=== PATIENT | male | born 1980 ===

== ENCOUNTER 2022-10-04 17:48 | Emergency (ER) | payer OTHER, SELFPAY ==
[2022-10-04 18:38] VITALS: BP 108/70; PULSE 96; RESP 16; TEMP 36.8; O2SAT 99; BMI 19.0
--- NOTE | 2022-10-04 18:38 | ED_ITS ---
HPI - Headache General Chief Complaint: Headache Stated Complaint: headaches dizziness Time Seen by Provider: 10/04/22 22:20 Source: patient Mode of arrival: ambulatory Limitations: no limitations History of Present Illness HPI Narrative: 42yoM c PMHx of Migraine headaches presenting to the ED c c/o generalized fatigue/malaise, headaches, nasal congestion/rhinorrhea, cough for the past 2 days worse today. Denies sick contacts or recent travel. Denies any other symptoms complaints or concerns at this time. MD elicited complaint: headache Onset (ago): day(s) (2) Severity: mild Quality & Timing: aching Exacerbating factors: none Relieving factors: nothing Associated symptoms: other (See above) Treatments prior to arrival: other (He has been taking [id number] and prescribed medication no symptomatic) Related Data Allergies Allergy/AdvReac Type Severity Reaction Status Date / Time No Known Allergies Allergy Verified 10/04/22 18:39 Review of Systems Review of Systems: Constitutional : + generalized fatigue/malaise/chills, No Weight loss, No Fever, No Night Sweats ENT/Mouth : No Hearing loss, No Ear Pain, + Nasal Congestion, No Sinus Pain, No Hoarseness, No sore throat, + Rhinorrhea, No Swallowing Difficulty Eyes: No Eye Pain, No Swelling, No Redness, No Foreign Body, No Discharge, No Vision Changes Cardiovascular : No Chest Pain, No SOB, No Dyspnea on Exertion, No Orthopnea, No Edema, No Palpitations Respiratory : + Cough, No Sputum, No Wheezing, No Smoke Exposure, No Dyspnea Gastrointestinal : No Nausea, No Vomiting, No Diarrhea, No Constipation, No abdominal Pain, No Hematochezia, No Melena Genitourinary : no irregular bleeding, No Dysuria, No Urinary Frequency, No Hematuria, No Urinary Incontinence, No Urgency, No Flank Pain, No Urinary Flow Changes, No Hesitancy Musculoskeletal : No joint pain, + Myalgias, No Joint Swelling Skin : No Skin Lesions, No rash Neuro : No Weakness, No Numbness, No Paresthesias, No Loss of Consciousness, No Dizziness, + Headache Psych : No Anxiety/Panic, No Depression, No SI/HI/AH/VH, No Social Issues, Heme/Lymph: No Bruising, No Bleeding,No Lymphadenopathy Endocrine : No Polyuria, No Polydipsia, No Temperature Intolerance Yes all other systems are reviewed and are negative PMFSH Past Medical History Attestation statement: The following information was validated with the patient. Source: old records reviewed and nursing notes reviewed Physical Exam Vital Signs: Vital Signs: Last Vital Signs Temp 98.2 F 10/04/22 18:38 Pulse 96 10/04/22 18:38 Resp 16 10/04/22 18:38 BP 108/70 10/04/22 18:38 Pulse Ox 99 10/04/22 18:38 O2 Del Method 10/04/22 18:38 BMI result Body Mass Index 19.0 Vital signs reviewed. Blood pressure normal. Pulse normal. Respiration normal. Oxygen normal. Temperature normal. Appearance: Alert. Oriented X3. No acute distress. Head: Normal external exam. Normocephalic. Atraumatic. Eyes: PERRLA. EOMI. Conjunctiva and sclera normal. Eyelids normal. ENT: Pharynx normal. Uvula midline. Moist mucous membranes. No lesions/ulcerati ons or masses noted on the tongue. Normal voice. No trismus noted. No drooling noted. No muffled voice noted. Neck: Normal inspection. Neck supple. FROM. No adenopathy. Thyroid Normal. No meningeal signs. CVS: Normal heart rate and rhythm. Heart sound normal. Pulses normal throughout. No murmurs/rales/gallops. Respiratory: No respiratory distress. Painless inspiration. Breath sounds normal. No wheezes/rales/rhonchi noted. Chest nontender. No accessory muscle usage noted or decreased air movement noted. Abdomen: Soft and nontender. Back: Full range of motion noted. Nontender. Skin: Skin warm and dry. Normal skin color. Normal skin turgor. No rashes/lesions/lacerations noted. Extremities: Extremities exhibit normal range of motion and nontender. Neuro: Oriented X 3. No motor deficit. No sensory deficit. Reflexes normal. Normal steady gait. No focal neuro deficits noted. CN's II-XII intact bilaterally? Vascular: + radial pulses. Normal cap refill. No cyanosis noted to upper extremity nails Course Course Course Narrative: [facility]-18:40PM - 42yoM c PMHx of Migraine headaches presenting to the ED c c/o generalized fatigue/malaise, headaches, nasal congestion/rhinorrhea, cough for the past 2 days worse today. Plan: Patient stable to go back to the waiting room to be evaluated in [facility]. COVID/RSV/flu swab ordered at this time. Reevaluation(s) Reevaluation #1: Patient positive for COVID/flu A. He eloped before his results returned or being told about his results. I tried to call him and leave him a message about his results so he can self isolate. Time: 22:26 Medical Decision Making Lab Data MDM Lab Attestation statement: I reviewed the patient's lab results. Labs: Lab Results 10/04/22 Range/Units 18:40 Influenza Type A (PCR) POSITIVE A (Negative) Influenza Type B (PCR) NEGATIVE (Negative) RSV RNA Qual (PCR) NEGATIVE (Negative) SARS-CoV-2 RNA (RT-PCR) POSITIVE A (Negative) Discharge Plan Discharge Clinical Impression: COVID-19, Influenza A Patient Disposition: Elopement Interventions: ED Discharge Assessment Last Done: 10/04/22 22:22
[2022-10-04 19:29] LABS: Influenza A PCR POSITIVE (Negative); Influenza B PCR NEGATIVE (Negative); Resp Syncy Virus RNA Qual PCR NEGATIVE (Negative); SARS COV2 PCR INHOUSE POSITIVE (Negative)
== END 2022-10-04 22:35 | disposition left against medical advice (07) ==
LOC: HO.ED 22:30
PROVIDERS: Physician Assistant Medical; Emergency Provider Internal Medicine
DX: U07.1 COVID-19 (principal); J10.1 Influenza due to other identified influenza virus with other respiratory manifestations
CPT/HCPCS: 0241U; 99282; 99283